=== PATIENT | male | born 1940 | race Caucasian/White ===

== ENCOUNTER 2017-07-25 11:40 | Day surgery (SDC) | payer MEDICARE, OTHER ==
--- NOTE | 2017-07-19 23:50 | HP ---
CC: Jazmyne Sauer MD * HISTORY AND PHYSICAL: DATE OF PLANNED ADMISSION AND SURGERY: 07/25/17 HISTORY OF PRESENT ILLNESS: Mr. Sepulveda is a 76-year-old white male, who is admitted with recurrent episodes of gross hematuria, multiple bladder tumors for cystoscopy for transurethral resection of bladder tumors. 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 He was referred to me 4 years ago because of persistent microscopic hematuria and irregularity of the right bladder wall on bladder ultrasound. At that time , his urine cytology was negative. On that visit, I recommended work-up with a CT urogram and a cystoscopy to rule out any bladder lesions. The patient; however, did not want to proceed with any workup, mentioning that for the last 25 years, he has been having episodes of gross hematuria occurring after long plane rides. He did not want to proceed with the workup and he did not want to schedule a follow-up visit. I stressed to him that the findings were suspicious for bladder cancer and recommended that he proceed with the workup. The patient never called back for followup visit. He continued to be seen by Dr. Jazmyne Sauer, his wireless operator. He reported having episodes of hematuria after long rides. He has remained asymptomatic having no flank pain or voiding symptoms. Last week, he started having persistent and recurrent episodes of gross hematuria with passage of clots. He had remained asymptomatic. He was seen by Dr. Jazmyne Sauer, who referred him on an urgent basis to my office for reevaluation. The patient has had a renal ultrasound in January of 2017, showing no abnormalities. The patient was seen in my office on 07/19/17. 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 It was arising from the right lateral bladder wall. CT Urogram showed normal kidneys and ureters, no renal masses, no abnormal filling defects in the collecting systems or the ureters. There was a 3 cm mass arising from the Rt anterior bladder wall, with thickening of the bladder wall at that level. No lymphadenopathy, and no metastatic disease noted. PAST MEDICAL HISTORY AND SYSTEM REVIEW: Completely negative. He is in excellent health. His only medication is vitamin B12. He denies any cardiac or pulmonary diseases or symptoms. He denies any voiding symptoms besides the gross hematuria. He is a nonsmoker. He has very good exercise tolerance. He is admitted for transurethral resection of the above tumors. PHYSICAL EXAMINATION GENERAL: A pleasant healthy and fit looking white male, who looks good for his age. VITAL SIGNS: Blood pressure 130/80, pulse of 76. LUNGS: Clear. HEART: Regular and rhythmic. No murmurs. ABDOMEN: Soft, no masses, no tenderness, and no CVA tenderness. EXTERNAL GENITALIA: He is circumcised. No penile lesions. Normal testes and no hernias. RECTAL EXAM: Shows a nonenlarged and nonsuspicious prostate. EXTREMITIES: Show no edema. IMPRESSION: Recurrent episodes of gross hematuria with multiple bladder tumors with the bulk originating from the right lateral wall. PLAN: Transurethral resection of the bladder tumors. I discussed the above plans in detail with the patient. I also discussed that he will need additional treatments depending upon the grade and the stage of his tumors. I also discussed the possible need for restaging TUR depending on the pathology. Because of concern regarding developing an obturator reflex during the resection of the tumors, his procedure will be done under general anesthesia with muscle relaxant to avoid an obturator reflex during the resections. This will be discussed with the anesthesiologist pre op. All the patient's questions were answered. [id number]/[facility] #: [id number] SANAZ
[~2017-07-25 11:40] MED LIST: Buffered Lidocaine 0.9% SYRIN* 5 ML/SYR SYRINGE INTRADERM ONE; Sodium Citrate/Citric Acid* 15 ML UDC PO ONE
[2017-07-25] MEDS ORDERED: cefTRIAXone(*) 2 GM ADDV.VIAL IVPB ONE (12:11)
[2017-07-25] MEDS ORDERED: Sodium Citrate/Citric Acid* 15 ML UDC ONE (12:11)
[2017-07-25 13:13] LABS: Comments Flag Yes
[2017-07-25 13:36] LABS: Mean Platelet Volume 9 um3 (7.4-10.4)
[2017-07-25] MEDS ORDERED: Lidocaine 2% PF * 5 ML VIAL ONE (13:53)
[2017-07-25] MEDS ORDERED: Propofol* 10 MG/ML 20 ML BTL IV PUSH ONE (13:53)
[2017-07-25] MEDS ORDERED: Rocuronium* 10 MG/ML VIAL ONE (13:56)
[2017-07-25] MEDS ORDERED: fentaNYL* 50 MCG/ML 2 ML VIAL (100 MCG VIAL) ONE ×2 (14:11→16:12)
[2017-07-25] MEDS ORDERED: Glycopyrrolate IV* 0.2 MG/ML 1 ML VIAL ONE (14:51)
[2017-07-25] MEDS ORDERED: Neostigmine Methylsulfate* 2 MG/2 ML SYRINGE ONE (14:51)
[2017-07-25] MEDS ORDERED: Ketorolac INJ* 30 MG/ML 1 ML VIAL IV PRN (15:34)
[2017-07-25] MEDS ORDERED: fentaNYL* 50 MCG/ML 2 ML VIAL (100 MCG VIAL) IV PRN (15:34)
[2017-07-25] MEDS ORDERED: Ondansetron INJ* 2 MG/ML VIAL IV PRN (15:34)
[2017-07-25] MEDS ORDERED: mitoMYcin PWD* 40 MG in Sterile Water for Inj* 40 ML IRRIGATION ONE (17:00)
[2017-07-25 18:05] VITALS: BP 139/119
--- NOTE | 2017-07-26 02:10 | OP ---
CC: Dr. Jazmyne Sauer OPERATIVE REPORT: DATE OF OPERATION: 07/25/17 DATE OF : 36 SURGEON: Panfilo Sousa MD ANESTHESIOLOGIST: Prasanna Pelaez DO ANESTHESIA: General. PRE-OP DIAGNOSIS: Multiple bladder tumors. POST-OP DIAGNOSIS: Multiple bladder tumors. OPERATIVE PROCEDURE: 1. Cystoscopy. 2. Transurethral resection of multiple bladder tumors (5 cm). INDICATIONS: Mr. Sepulveda is a 76-year-old white male, who had a long history of recurrent episodes of gross painless hematuria. Recently, the episodes became more frequent associated with clots. Office cystoscopy showed multiple bladder tumors with the largest tumor occupying the right anterior bladder wall. There were smaller tumors noted. CT urogram showed normal upper tracts and normal ureters. There was significant degree of thickening and mass in the right anterior bladder wall consistent with the findings on the cystoscopy. There was no lymphadenopathy or metastatic disease. Because of the above history and findings, the patient is admitted for TURBT. PATHOLOGY AT CYSTOSCOPY: The penile and bulbar urethrae looked normal. The prostatic urethra measured 2.5 cm in length and there was only mild obstruction by the prostate. Examination of the bladder showed normal ureteral orifices. There were 2 small tumors measuring about 1 cm in size located in the base of the bladder and in the left base of the bladder superior and lateral to the left ureteral orifice. The bulk of the tumor was located in the right anterolateral bladder wall. The tumor looked high grade and seemed to be invasive into the bladder wall. There was adjacent flat irregularity of the mucosa consistent with either lymphatic obstruction, or suspicious for carcinoma in situ. DESCRIPTION OF PROCEDURE: After successful general endotracheal anesthesia, the patient was placed in the lithotomy position and prepped and draped in the usual manner. Cystoscopy was performed. The bladder was carefully inspected and the above findings were noted. The resectoscope was then introduced inside the bladder. Water was used for irrigation. The inflow and outflow were adjusted to avoid overdistention of the bladder. The patient was given muscle relaxant by the anesthesiologist to avoid an obturator reflex. The large tumor in the right anterolateral bladder wall was then resected deep to muscle. The resected tissue was irrigated and sent for pathology and labelled as bladder tumor, right anterolateral bladder wall. The irregular tissue adjacent to the bladder tumor was resected and sent as a separate specimen and labeled as right anterior bladder wall. The tumor in the left base of the bladder lateral to the left ureteral orifice was also resected down to muscle and sent as a separate specimen labeled tumor base of bladder. The other superficial tumors that were seen were thoroughly fulgurated with the coagulation current. Extensive fulguration was then carried controlling all oozing from the bed of the resected tumors. At the completion of the resection, there was no gross residual tumor seen. There was good hemostasis. There was no evidence of any bladder perforation. The ureteral orifices looked normal. No residual tumor fragments were noted floating in the bladder. The resectoscope was then removed and a size 20-Wallisian Foss catheter was passed inside the bladder and the balloon inflated with 15 cc of water. Irrigation yielded clear returns. The patient tolerated the procedure well and left the operating room in good condition. The plan is to give the patient 1 dose of intravesical mitomycin-C in the recovery room. [id number]/[facility] #: [id number] MTDD
== END 2017-07-25 18:05 | disposition home or self-care (01) ==
LOC: OR 11:40
PROVIDERS: ATTEND Urology
DX: C67.8 Malignant neoplasm of overlapping sites of bladder (principal); R31.0 Gross hematuria; Z87.891 Personal history of nicotine dependence
CPT/HCPCS: 36415; 85049; 85610; 85730; 88305; A9270-GY; J0696; J2704; J3010; J9280

== ENCOUNTER 2017-10-25 16:31 | Emergency (ER) | payer MEDICARE, OTHER ==
[2017-10-25] MEDS ORDERED: Ketorolac INJ* 30 MG/ML 1 ML VIAL IV ONE (18:25)
[2017-10-25 19:00] LABS: ABS Basophils 0 10^3/ul (0-0.2); ABS Eosinophils 0 10^3/ul (0-0.6); ABS Lymphocytes 0.6 10^3/ul (1.0-4.8); ABS Monocytes 0.7 10^3/ul (0-0.8); ABS Neutrophils 8.8 10^3/ul (1.5-7.7); ABS Nucleated RBC 0 10^3/ul; Eosinophil % 0 % (0-6); Hematocrit 28 % (42-52); Hemoglobin 9.1 g/dl (14.0-18.0); Lymphocyte % 5.7 % (25-47); Mean Corpuscular HGB Conc 33 g/dl (31-36); Mean Corpuscular Hemoglobin 25 pg (27-31); Mean Corpuscular Volume 75 fL (80-94); Mean Platelet Volume 8 um3 (7.4-10.4); Nucleated Red Blood Cells % 0; Platelet Count 168 10^3/ul (150-450); Red Blood Count 3.67 10^6/ul (4.0-5.4); Red Cell Distribution Width 15 % (10.5-15); White Blood Count 10.2 10^3/ul (3.5-10.8)
[2017-10-25 19:16] LABS: EGFR Non-African American 69.7 (>60)
[2017-10-25] MEDS ORDERED: Iohexol 300* (CONTRAST) 10 ML SDV IV ONE (21:30)
--- NOTE | 2017-10-25 21:59 | RAD ---
INDICATION: Left lower quadrant pain COMPARISON: Chest abdomen and pelvis September 13, 2017 TECHNIQUE: Axial source images were obtained from the hemidiaphragms to the symphysis pubis following administration of oral and intravenous contrast. 95 mL Omnipaque 300 was utilized. Coronal and sagittal reconstructed images were acquired. Lung bases: There is minimal lingular atelectasis or scarring. The lung bases are otherwise clear. Liver: The liver is normal in size. There are no masses. There is no ductal dilatation. Gallbladder: There is calcified cholelithiasis with a 2 cm gallstone. This represents a previously documented finding. Spleen: There is moderate splenomegaly without focal mass. Pancreas: There is no focal pancreatic mass or ductal dilatation. Adrenal glands: There is no evidence of adrenal mass. Kidneys: The kidneys are normal in size and position. There are prompt nephrograms and there is prompt excretion bilaterally. There are bilateral renal cysts with dominant 7 cm right renal cyst there is no evidence of nephrolithiasis. Adenopathy: There is no evidence of adenopathy by size criteria. Fluid collections: There are multiple localized fluid collections. One large fluid collection is in the central lower pelvis at the site of bladder resection and appears contiguous with the additional loculated collections extending into both iliac fossae. There is no air within the collections. Vessels:There are atherosclerotic changes involving the aorta and iliac vessels with extensive intimal calcifications and vascular ectasia there is no focal aneurysm. The IVC appears normal. GI tract: There are no acute upper GI findings findings. There is now a stoma in the right lower quadrant perhaps related to ileal loop procedure. Suggest correlation with surgical history. There are extensive diverticula of the sigmoid colon but no convincing CT evidence of acute diverticulitis. Pelvic organs: The prostate is not well delineated and may been resected at the time of cystectomy Bladder: There is interval cystectomy by history. Abdominal and pelvic soft tissues: There is interval laparotomy.. Osseous structures: There are no acute osseous findings. There is spondylitic change of the lumbar spine Other: None IMPRESSION: Cholelithiasis Bilateral renal cysts with dominant 7.2 cm right renal cyst. Cystectomy with presumed ileal loop procedure. Multiple localized fluid collections within the abdomen. These may or may not be infected. Moderate diverticula of the sigmoid colon
[2017-10-25] MEDS ORDERED: NS 0.9% 1000 ML* 1,000 ML IV ONE (22:19)
[2017-10-25] MEDS ORDERED: cefTRIAXone(*) 1 GM in NS 0.9% 50 ML* 50 ML IVPB ONE (22:19)
[2017-10-25 22:31] LABS: Urine Appearance Cloudy; Urine Blood Negative (Negative); Urine Color Amber; Urine Ketones Negative (Negative); Urine Protein 3+(>=500 mg/dL) (Negative); Urine Specific Gravity 1.023 (1.010-1.030); Urine Urobilinogen Negative (Negative)
--- NOTE | 2017-10-25 23:07 | ED ---
Edy Hatr Stephanie, scribed for Phil Apple MD on 10/25/17 at 1822 . Abdominal Pain/Male - HPI Summary HPI Summary: The pt is a 77 y/o M presenting to the ED with c/o lower abd pain that began on 10/23 at 14:00. Symptoms include fever. The pt denies nausea, nasal congestion, cough and decreased appetite. The pt states he felt fine until he went on a walk 2 days ago. The pt had his bladder removed on 09/19. The pain is rated as a 5 in severity. - History of Current Complaint Chief Complaint: EDFever Stated Complaint: ABD PAIN Time Seen by Provider: 10/25/17 17:55 Hx Obtained From: Patient Onset/Duration: Gradual Onset, Lasting Days - 2, Still Present Timing: Constant Severity Currently: Moderate Pain Intensity: 5 Pain Scale Used: 0-10 Numeric Location: Suprapubic Radiates: No Aggravating Factor(s): Nothing Alleviating Factor(s): Nothing Associated Signs And Symptoms: Positive: Fever. Negative: Cough, Nausea, Other - nasal congestion, decreased appetite - Allergies/Home Medications Allergies/Adverse Reactions: Allergies Allergy/AdvReac Type Severity Reaction Status Date / Time tetracycline Allergy Unknown Verified 10/25/17 17:46 Reaction Details PMH/Surg Hx/FS Hx/Imm Hx Endocrine/Hematology History: Denies: Hx Diabetes Cardiovascular History: Denies: Hx Hypertension, Other Cardiovascular Problems/Disorders Respiratory History: Denies: Other Respiratory Problems/Disorders GI History: Denies: Other GI Disorders History: Denies: Hx Renal Disease Sensory History: Reports: Hx Contacts or Glasses - glasses Denies: Hx Hearing Aid Opthamlomology History: Reports: Hx Contacts or Glasses - glasses - Surgical History Surgery Procedure, Year, and Place: 1953, gland from neck Hx Anesthesia Reactions: No Infectious Disease History: No Infectious Disease History: Denies: Traveled Outside the [place] in Last 30 Days - Family History Known Family History: Positive: Unknown - The pt denies all family hx. - Social History Occupation: Retired Lives: With Family Alcohol Use: Weekly Alcohol Amount: 3-4 drinks a week Substance Use Type: Reports: None Smoking Status (MU): Former Smoker Amount Used/How Often: pack a day for 20 yrs Review of Systems Positive: Fever, Other - Negative: decreased appetite Positive: Other - Negative: nasal congestion Negative: Cough Positive: Abdominal Pain. Negative: Nausea All Other Systems Reviewed And Are Negative: Yes Physical Exam - Summary Physical Exam Summary: Appearance: The patient is well-nourished in no acute distress and in no acute pain. Skin: The skin is warm and dry and skin color reflects adequate perfusion. HEENT: The head is normocephalic and atraumatic. The pupils are equal and reactive. The conjunctivae are clear and without drainage. Nares are patent and without drainage. Mouth reveals moist mucous membranes and the throat is without erythema and exudate. The external ears are intact. The ear canals are patent and without drainage. The tympanic membranes are intact. Neck: the neck is supple with full range of motion and non-tender. There are no carotid bruits. There is no neck vein distension. Respiratory: Chest is non-tender. Lungs are clear to auscultation and breath sounds are symmetrical and equal. Cardiovascular: Heart is regular rate and rhythm. There is no murmur or rub auscultated. There is no peripheral edema and pulses are symmetrical and equal. Abdomen: Tender over LLQ, post-operative wounds are clean and healing well. There are normal bowel sounds heard in all four quadrants and there is no organomegaly palpated. Musculoskeletal: There is no back tenderness noted. Extremities are non-tender with full range of motion. There is good capillary refill. There is no peripheral edema or calf tenderness elicited. Neurological: Patient is alert and oriented to person, place and time. The patient has symmetrical motor strength in all four extremities. Cranial nerves are grossly intact. Deep tendon reflexes are symmetrical and equal in all four extremities. Psychiatric: The patient has an appropriate affect and does not exhibit any anxiety or depression Triage Information Reviewed: Yes Vital Signs On Initial Exam: Initial Vitals Temp Pulse Resp BP Pulse Ox 100.8 F 106 19 113/50 100 10/25/17 16:43 10/25/17 16:43 10/25/17 16:43 10/25/17 16:43 10/25/17 16:43 Vital Signs Reviewed: Yes Diagnostics - Vital Signs Vital Signs Temp Pulse Resp BP Pulse Ox 10/25/17 17:45 101.8 F 110 24 121/52 99 10/25/17 16:43 100.8 F 106 19 113/50 100 - Laboratory Lab Results: Lab Results 0210/25/17 10/25/17 Range/Units 18:36 18:36 18:36 WBC 10.2 (3.5-10.8) 10^3/ul RBC 3.67 L (4.0-5.4) 10^6/ul Hgb 9.1 L (14.0-18.0) g/dl Hct 28 L (42-52) % MCV 75 L (80-94) fL MCH 25 L (27-31) pg MCHC 33 (31-36) g/dl RDW 15 (10.5-15) % Plt Count 168 (150-450) 10^3/ul MPV 8 (7.4-10.4) um3 Neut % (Auto) 86.8 H (38-83) % Lymph % (Auto) 5.7 L (25-47) % Greene % (Auto) 7.3 H (0-7) % Eos % (Auto) 0 (0-6) % Baso % (Auto) 0.2 (0-2) % Absolute Neuts (auto) 8.8 H (1.5-7.7) 10^3/ul Absolute Lymphs (auto) 0.6 L (1.0-4.8) 10^3/ul Absolute Monos (auto) 0.7 (0-0.8) 10^3/ul Absolute Eos (auto) 0 (0-0.6) 10^3/ul Absolute Basos (auto) 0 (0-0.2) 10^3/ul Absolute Nucleated RBC 0 10^3/ul Nucleated RBC % 0 Sodium 131 L (133-145) mmol/L Potassium 4.0 (3.5-5.0) mmol/L Chloride 101 (101-111) mmol/L Carbon Dioxide 22 (22-32) mmol/L Anion Gap 8 (2-11) mmol/L BUN 22 (6-24) mg/dL Creatinine 1.03 (0.67-1.17) mg/dL Est GFR ( Amer) 89.6 (>60) Est GFR (Non-Af Amer) 69.7 (>60) BUN/Creatinine Ratio 21.4 H (8-20) Glucose 113 H (70-100) mg/dL Lactic Acid 1.2 (0.5-2.0) mmol/L Calcium 8.7 (8.6-10.3) mg/dL Total Bilirubin 0.50 (0.2-1.0) mg/dL AST 7 L (13-39) U/L ALT 6 L (7-52) U/L Alkaline Phosphatase 66 (34-104) U/L C-Reactive Protein 221.67 H (< 5.00) mg/L Total Protein 6.2 L (6.4-8.9) g/dL Albumin 3.2 (3.2-5.2) g/dL Globulin 3.0 (2-4) g/dL Albumin/Globulin Ratio 1.1 (1-3) Lipase 11 (11.0-82.0) U/L Urine Color Urine Appearance Urine pH (5-9) Ur Specific [place] (1.010-1.030) Urine Protein (Negative) Urine Ketones (Negative) Urine Blood (Negative) Urine Nitrate (Negative) Urine Bilirubin (Negative) Urine Urobilinogen (Negative) Ur Leukocyte Esterase (Negative) Urine WBC (Auto) (Absent) Urine RBC (Auto) (Absent) Ur Squamous Epith Cells (Absent) Triple Phos Crystals (Absent) Amorphous Crystals (Absent) Urine Bacteria (Absent) Hyaline Casts (Absent) Urine Glucose (Negative) 10/25/17 Range/Units 22:05 WBC (3.5-10.8) 10^3/ul RBC (4.0-5.4) 10^6/ul Hgb (14.0-18.0) g/dl Hct (42-52) % MCV (80-94) fL MCH (27-31) pg MCHC (31-36) g/dl RDW (10.5-15) % Plt Count (150-450) 10^3/ul MPV (7.4-10.4) um3 Neut % (Auto) (38-83) % Lymph % (Auto) (25-47) % Greene % (Auto) (0-7) % Eos % (Auto) (0-6) % Baso % (Auto) (0-2) % Absolute Neuts (auto) (1.5-7.7) 10^3/ul Absolute Lymphs (auto) (1.0-4.8) 10^3/ul Absolute Monos (auto) (0-0.8) 10^3/ul Absolute Eos (auto) (0-0.6) 10^3/ul Absolute Basos (auto) (0-0.2) 10^3/ul Absolute Nucleated RBC 10^3/ul Nucleated RBC % Sodium (133-145) mmol/L Potassium (3.5-5.0) mmol/L Chloride (101-111) mmol/L Carbon Dioxide (22-32) mmol/L Anion Gap (2-11) mmol/L BUN (6-24) mg/dL Creatinine (0.67-1.17) mg/dL Est GFR ( Amer) (>60) Est GFR (Non-Af Amer) (>60) BUN/Creatinine Ratio (8-20) Glucose (70-100) mg/dL Lactic Acid (0.5-2.0) mmol/L Calcium (8.6-10.3) mg/dL Total Bilirubin (0.2-1.0) mg/dL AST (13-39) U/L ALT (7-52) U/L Alkaline Phosphatase (34-104) U/L C-Reactive Protein (< 5.00) mg/L Total Protein (6.4-8.9) g/dL Albumin (3.2-5.2) g/dL Globulin (2-4) g/dL Albumin/Globulin Ratio (1-3) Lipase (11.0-82.0) U/L Urine Color Emily Urine Appearance Cloudy Urine pH 9.0 (5-9) Ur Specific [place] 1.023 (1.010-1.030) Urine Protein 3+(>=500 mg/dl) H (Negative) Urine Ketones Negative (Negative) Urine Blood Negative (Negative) Urine Nitrate Negative (Negative) Urine Bilirubin 1+ (Negative) Urine Urobilinogen Negative (Negative) Ur Leukocyte Esterase 2+ H (Negative) Urine WBC (Auto) 3+(>20/hpf) H (Absent) Urine RBC (Auto) Trace(0-2/hpf) (Absent) Ur Squamous Epith Cells Present H (Absent) Triple Phos Crystals Present H (Absent) Amorphous Crystals Present H (Absent) Urine Bacteria Absent (Absent) Hyaline Casts Present H (Absent) Urine Glucose Negative (Negative) Result Diagrams: 10/25/17 18:36 10/25/17 18:36 Lab Statement: Any lab studies that have been ordered have been reviewed, and results considered in the medical decision making process. - CT Abdomen/Pelvis CT Interpretation: Positive (See Comments) CT Interpretation Completed By: Radiologist - Cholelithiasis Bilateral renal cysts with dominant 7.2 cm right renal cyst. Cystectomy with presumed ileal loop procedure. Multiple localized fluid collections within the abdomen. These may or may not be infected. Moderate diverticula of the sigmoid colon Abdominal Pain Fem Course/Dx - Course Course Of Treatment: Mr. Sepulveda had a cystectomy about 6 weeks ago and two days ago developed low abdominal pain and fevers. He was febrile on arrival and a little tachycardic. His WBC's were 10 with a slight shift (ANC 8.8). His CRP was markedly elevated at 200. CT of his abdomen with contrast has been read as having loculated fluid collections. I spole with the urological resident at [facility] and he requested that we send him the images. We are now waiting for him to call back. We have no urologic coverage tonight. The patient is receiving fluids and antibiotics. - Diagnoses Provider Diagnoses: Postoperative intra-abdominal abscess Discharge - Discharge Plan Condition: Stable Disposition: OTHER Discharge Disposition Comment: This pt was a sign out to Dr. Monreal at shift change. Referrals: Jazmyne Sauer MD [Primary Care Provider] - The documentation as recorded by the Edy ibarra Stephanie accurately reflects the service I personally performed and the decisions made by me, Phil Apple MD.
[2017-10-25] MEDS ORDERED: NS 0.9% 50 ML* 100 ML ONE (23:09)
[2017-10-25] MEDS ORDERED: cefTRIAXone(*) 1 GM in NS 0.9% 50 ML* 50 ML IVPB STA (23:15)
[2017-10-25] MEDS ORDERED: cefTRIAXone(*) 1 GM ADVAN/BAG ONE (23:16)
[2017-10-26 00:56] LABS: INR 1.46 (0.77-1.02)
[2017-10-26 02:00] VITALS: BP 107/53
--- NOTE | 2017-10-26 02:14 | ED ---
Orville Hart Angela, scribed for Anirudh Monreal on 10/26/17 at 0112 . Progress - Progress Note Progress Note: This pt was signed out by Dr. Apple, pending transfer to [facility]. [00:03]: I spoke with the transfer center at [facility] who reported they would call back. [01:03]: I spoke with Dr. Wyman, from [facility], who has accepted the pt for transfer. Pt will be transferred to [facility], in stable condition. Condition: Stable Disposition: Transfer to [facility] Course/Dx - Diagnoses Provider Diagnoses: Postoperative intra-abdominal abscess The documentation as recorded by the Orville ibarra Angela accurately reflects the service I personally performed and the decisions made by Rah lo Emmanuel.
--- NOTE | 2017-10-29 08:49 | ED ---
Progress - Progress Note Progress Note: This pt was signed out by Dr. Apple, pending transfer to [facility]. [00:03]: I spoke with the transfer center at [facility] who reported they would call back. [01:03]: I spoke with Dr. Wyman, from [facility], who has accepted the pt for transfer. Pt will be transferred to [facility], in stable condition. 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 Transferred to [facility]. Will fax. rajni Hernandez aware. ALA, PA-C 8:48am 10/29 Course/Dx - Course Course Of Treatment: Mr. Sepulveda had a cystectomy about 6 weeks ago and two days ago developed low abdominal pain and fevers. He was febrile on arrival and a little tachycardic. His WBC's were 10 with a slight shift (ANC 8.8). His CRP was markedly elevated at 200. CT of his abdomen with contrast has been read as having loculated fluid collections. I spole with the urological resident at [facility] and he requested that we send him the images. We are now waiting for him to call back. We have no urologic coverage tonight. The patient is receiving fluids and antibiotics. - Diagnoses Provider Diagnoses: Postoperative intra-abdominal abscess
== END 2017-10-26 01:55 | disposition short-term general hospital (02) ==
LOC: ED 16:31
DX: T81.4XXA Infection following a procedure, initial encounter (principal); K65.1 Peritoneal abscess; R50.9 Fever, unspecified; R10.30 Lower abdominal pain, unspecified; Z87.891 Personal history of nicotine dependence
CPT/HCPCS: 36415; 74177; 80053; 81003; 81015; 83605; 83690; 85025; 85610; 85730; 86140; 87040; 87077; 87086; 87205; 96374; 96375; 99285; J0696; J1885; Q9967

== ENCOUNTER 2017-12-29 18:42 | Emergency (ER) | payer MEDICARE, OTHER ==
[2017-12-29 18:56] VITALS: BP 130/80
[2017-12-29] MEDS ORDERED: NS 0.9% 1000 ML* 1,000 ML IV ONE (18:56)
--- NOTE | 2017-12-29 19:39 | RAD ---
INDICATION: Fell and hit posterior head. Confusion. Altered mental status. Comparison: No relevant prior exams available on the [facility] PACS for comparison. Technique: Noncontrast CT vertex of skull through foramen magnum. Coronal reformation. Report: Motion artifact degrades image quality. Scan repeated to correct for significant artifact from motion on the initial data acquisition. Small volume of subarachnoid hemorrhage at the LEFT temporal lobe. No definitive subdural or epidural hematoma evident. Negative for mass effect. Punctate focus of pneumocephalus at the LEFT middle cranial fossa reference axial image 12 of 36. Moderate prominence of the cerebral sulci reflecting atrophy. Mild prominence of the cerebellar fissures reflecting atrophy. 0.7 cm chronic lacunar infarct at the LEFT caudate head. Negative for fischer matter white matter obscuration. Unremarkable ventricles accounting for atrophy and basal cisterns. Reference the coronal reformatted series there is a nondisplaced axially oriented LEFT temporoparietal fracture. Small mucous retention cyst or polyp at the RIGHT maxillary sinus. Negative for paranasal sinus fluid levels. Clear partially visualized mastoid air spaces. Minimal LEFT parietal scalp edema and subcutaneous emphysema; correlate for laceration. IMPRESSION: 1. Small volume of subarachnoid hemorrhage at the LEFT temporal lobe. No definitive subdural or epidural hematoma evident. Minimal punctate focus of pneumocephalus. Reference the coronal reformatted series there is a nondisplaced axially oriented LEFT temporoparietal fracture. 2. Negative for mass effect. 3. Minimal LEFT parietal scalp edema and subcutaneous emphysema; correlate for laceration. 4. 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 Results discussed with Dr. Monreal 12/29/2017 7:35 PM EDT
[2017-12-29 19:40] LABS: Hematocrit 29 % (42-52); Hemoglobin 9.2 g/dl (14.0-18.0); Mean Corpuscular HGB Conc 31 g/dl (31-36); Mean Corpuscular Hemoglobin 22 pg (27-31); Mean Corpuscular Volume 69 fL (80-94); Mean Platelet Volume 7.7 um3 (7.4-10.4); Platelet Count 237 10^3/ul (150-450); Red Blood Count 4.26 10^6/ul (4.0-5.4); Red Cell Distribution Width 18 % (10.5-15); White Blood Count 8.5 10^3/ul (3.5-10.8)
[2017-12-29 19:44] LABS: INR 1.02 (0.77-1.02)
--- NOTE | 2017-12-29 19:45 | RAD ---
INDICATION: Neck pain post fall. Head injury with LEFT temporal lobe subarachnoid hemorrhage. COMPARISON: October 05, 2016 radiographs. TECHNIQUE: Multidetector CT images foramen magnum to lung apices without contrast. Multiplanar reformation. REPORT: Normal vertebral alignment accounting for exam positioning without spondylolisthesis or subluxation at any level. Negative for cervical vertebral body or posterior element fracture. Negative for paravertebral hematoma. Diffuse advanced degenerative spondylosis and facet joint osteoarthritis. Ankylosis at the C3-C4 vertebral bodies and facet joints. At C3-C4 dorsal spondylitic ridging results in minimal impression on the thecal sac. Uncinate process spurring and facet joint osteoarthritis results in slight bilateral foraminal stenosis. At C4-C5 dorsal disc osteophyte complex results in mild impression on the ventral margin of the thecal sac. Uncinate process spurring and facet joint osteoarthritis results in moderately severe bilateral foraminal stenosis. At C5-C6 dorsal disc osteophyte complex results in mild to moderate impression on the ventral margin of the thecal sac. Uncinate process spurring and facet joint osteoarthritis results in moderately severe bilateral foraminal stenosis. At C6-C7 dorsal disc osteophyte complex results in mild impression on the ventral margin of the thecal sac. Uncinate process spurring and facet joint osteoarthritis results in moderately severe foraminal stenosis. IMPRESSION: 1. No CT evidence for traumatic cervical spine injury. 2. 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 No significant change in magnitude of degenerative disease compared with the October 2016 radiographs.
[2017-12-29 19:48] LABS: EGFR Non-African American 78.4 (>60)
[2017-12-29] MEDS ORDERED: Iohexol 300* (CONTRAST) 10 ML SDV IV ONE (19:51)
--- NOTE | 2017-12-29 20:11 | ED ---
Mat Hatr Elizabeth, scribed for Anirudh Monreal on 12/29/17 at 1929 . Head Injury - HPI Summary HPI Summary: This patient is a 77 year old M presenting to [facility] following a fall today that caused him to hit the back of his head and his back. The patient rates the pain 8/10 in severity. Symptoms aggravated by nothing. Symptoms alleviated by nothing. Patients son reports that the patient has been confused since the trauma and vomited several times. - History Of Current Complaint Chief Complaint: EDTraumaMultiple Stated Complaint: FALL/VOMITING/CONFUSION Time Seen by Provider: 12/29/17 18:55 Hx Obtained From: Family/[employer]visor - Patient's son Hx From Patient Unobtainable Due To: Altered Mental Status Mechanism Of Injury: Fall From A Standing Position Onset/Duration: Started Hours Ago, Traumatic, Still Present Onset of Pain: Post Accident Severity Currently: Moderate Severity Initially: Moderate Pain Intensity: 8 Pain Scale Used: 0-10 Numeric Associated Signs And Symptoms: Confusion, Neck Pain, Vomiting - Allergies/Home Medications Allergies/Adverse Reactions: Allergies Allergy/AdvReac Type Severity Reaction Status Date / Time tetracycline Allergy Unknown Verified 10/25/17 17:46 Reaction Details PMH/Surg Hx/FS Hx/Imm Hx Endocrine/Hematology History: Denies: Hx Diabetes Cardiovascular History: Denies: Hx Hypertension, Other Cardiovascular Problems/Disorders Respiratory History: Denies: Other Respiratory Problems/Disorders GI History: Denies: Other GI Disorders History: Reports: Other Problems/Disorders - Bladder cancer Denies: Hx Renal Disease Sensory History: Reports: Hx Contacts or Glasses - glasses Denies: Hx Hearing Aid Opthamlomology History: Reports: Hx Contacts or Glasses - glasses - Cancer History Cancer Type, Location and Year: BLADDER CANCER - Surgical History Surgery Procedure, Year, and Place: 1953, gland from neck. 09/20/2017, cholecystectomy Hx Anesthesia Reactions: No Infectious Disease History: No Infectious Disease History: Denies: Traveled Outside the [place] in Last 30 Days - Family History Known Family History: Positive: Unknown - The pt denies all family hx. - Social History Alcohol Use: Weekly Alcohol Amount: 3-4 drinks a week Substance Use Type: Reports: None Smoking Status (MU): Former Smoker Amount Used/How Often: pack a day for 20 yrs Review of Systems Negative: Epistaxis Positive: Vomiting Positive: Other - positive neck pain, positive back pain Neurological: Other - Confusion All Other Systems Reviewed And Are Negative: Yes Physical Exam - Summary Physical Exam Summary: Appearance: Well appearing, no pain distress Skin: warm, dry, reflects adequate perfusion Head/face: normal Eyes: EOMI, BRI ENT: normal Neck: supple, tender Respiratory: CTA, breath sounds present Cardiovascular: RRR, pulses symmetrical ~ Abdomen: non-tender, soft, urostomy bag in RLQ Bowel: present Musculoskeletal: normal, strength/ROM intact Neuro: normal, sensory motor intact, alert and confused Triage Information Reviewed: Yes Vital Signs On Initial Exam: Initial Vitals Temp Pulse Resp BP Pulse Ox 96.7 F 92 29 130/80 100 12/29/17 18:53 12/29/17 18:53 12/29/17 18:53 12/29/17 18:53 12/29/17 18:53 Vital Signs Reviewed: Yes Diagnostics - Vital Signs Vital Signs Temp Pulse Resp BP Pulse Ox 12/29/17 18:53 96.7 F 92 29 130/80 100 - Laboratory Lab Results: Lab Results 12/29/17 12/29/17 12/29/17 Range/Units 19:20 19:20 19:20 WBC 8.5 (3.5-10.8) 10^3/ul RBC 4.26 (4.0-5.4) 10^6/ul Hgb 9.2 L (14.0-18.0) g/dl Hct 29 L (42-52) % MCV 69 L (80-94) fL MCH 22 L (27-31) pg MCHC 31 (31-36) g/dl RDW 18 H (10.5-15) % Plt Count 237 (150-450) 10^3/ul MPV 7.7 (7.4-10.4) um3 Neut % (Auto) Pending Lymph % (Auto) Pending Banks % (Auto) Pending Eos % (Auto) Pending Baso % (Auto) Pending Absolute Neuts (auto) Pending Absolute Lymphs (auto) Pending Absolute Monos (auto) Pending Absolute Eos (auto) Pending Absolute Basos (auto) Pending Absolute Nucleated RBC Pending Nucleated RBC % Pending INR (Anticoag Therapy) 1.02 (0.77-1.02) Sodium 135 L (139-145) mmol/L Potassium 3.6 (3.5-5.0) mmol/L Chloride 107 (101-111) mmol/L Carbon Dioxide 19 L (22-32) mmol/L Anion Gap 9 (2-11) mmol/L BUN 19 (6-24) mg/dL Creatinine 0.93 (0.67-1.17) mg/dL Est GFR ( Amer) 100.8 (>60) Est GFR (Non-Af Amer) 78.4 (>60) BUN/Creatinine Ratio 20.4 H (8-20) Glucose 133 H (70-100) mg/dL Lactic Acid (0.5-2.0) mmol/L Calcium 9.2 (8.6-10.3) mg/dL Total Bilirubin 0.30 (0.2-1.0) mg/dL AST 11 L (13-39) U/L ALT 8 (7-52) U/L Alkaline Phosphatase 66 (34-104) U/L Total Creatine Kinase 38 (10-223) U/L Troponin I 0.00 (<0.04) ng/mL Total Protein 6.7 (6.4-8.9) g/dL Albumin 3.7 (3.2-5.2) g/dL Globulin 3.0 (2-4) g/dL Albumin/Globulin Ratio 1.2 (1-3) Serum Alcohol Pending 12/29/17 Range/Units 19:20 WBC (3.5-10.8) 10^3/ul RBC (4.0-5.4) 10^6/ul Hgb (14.0-18.0) g/dl Hct (42-52) % MCV (80-94) fL MCH (27-31) pg MCHC (31-36) g/dl RDW (10.5-15) % Plt Count (150-450) 10^3/ul MPV (7.4-10.4) um3 Neut % (Auto) Lymph % (Auto) Banks % (Auto) Eos % (Auto) Baso % (Auto) Absolute Neuts (auto) Absolute Lymphs (auto) Absolute Monos (auto) Absolute Eos (auto) Absolute Basos (auto) Absolute Nucleated RBC Nucleated RBC % INR (Anticoag Therapy) (0.77-1.02) Sodium (139-145) mmol/L Potassium (3.5-5.0) mmol/L Chloride (101-111) mmol/L Carbon Dioxide (22-32) mmol/L Anion Gap (2-11) mmol/L BUN (6-24) mg/dL Creatinine (0.67-1.17) mg/dL Est GFR ( Amer) (>60) Est GFR (Non-Af Amer) (>60) BUN/Creatinine Ratio (8-20) Glucose (70-100) mg/dL Lactic Acid 3.0 H* (0.5-2.0) mmol/L Calcium (8.6-10.3) mg/dL Total Bilirubin (0.2-1.0) mg/dL AST (13-39) U/L ALT (7-52) U/L Alkaline Phosphatase (34-104) U/L Total Creatine Kinase (10-223) U/L Troponin I (<0.04) ng/mL Total Protein (6.4-8.9) g/dL Albumin (3.2-5.2) g/dL Globulin (2-4) g/dL Albumin/Globulin Ratio (1-3) Serum Alcohol Result Diagrams: 12/29/17 19:20 12/29/17 19:20 Lab Statement: Any lab studies that have been ordered have been reviewed, and results considered in the medical decision making process. - CT Brain CT CT Interpretation: Positive (See Comments) - IMPRESSION: 1. Small volume of subarachnoid hemorrhage at the LEFT temporal lobe. No definitive subdural or epidural hematoma evident. Minimal punctate focus of pneumocephalus. Reference the coronal reformatted series there is a nondisplaced axially oriented LEFT temporoparietal fracture. 2. Negative for mass effect. 3. Minimal LEFT parietal scalp edema and subcutaneous emphysema; correlate for laceration. 4. 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 Dr. Monreal has reviewed this report. CT Interpretation Completed By: Radiologist Cervical Spine CT CT Interpretation: Positive (See Comments) - IMPRESSION: 1. No CT evidence for traumatic cervical spine injury. 2. 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 No significant change in magnitude of degenerative disease compared with the October [address] Monreal has reviewed this report. CT Interpretation Completed By: Radiologist - EKG 18:54 Cardiac Rate: NL - at 90 BPM EKG Rhythm: Sinus Rhythm EKG Interpretation: NSR, no acute changes Re-Evaluation - Re-Evaluation first re-eval Re-Evaluation Time: 19:33 Change: Unchanged Comment: discussed radiology results with patient and family. Family expressed wish to transfer the patient to [facility]. Head Injury Course/Dx Course Of Treatment: This patient is a 77 year old M presenting to [facility] following a fall today that caused him to hit the back of his head and his back. Radiology reports reveal skull fracture with subarachnoid hemorrhage. Patients family wants him to be transferred to [facility]. We discussed patient care with Dr. Costa Frey, at [facility], and they auto-accepted to admit the patient. Patient will be transferred to [facility].The patient is agreeable with this plan. At time of transfer still pending CT chest/Abd/pelvis and CXR. - Diagnoses Differential Diagnosis/HQI/PQRI: Cerebral Contusion, Cervical Sprain, Concussion With LOC, Hematoma, Intracranial Bleed, Laceration, Skull Fracture, Other - fall Provider Diagnoses: Skull fracture, Subarachnoid hemorrhage, Head injury - Physician Notifications Discussed Care Of Patient With: Costa Frey MD - Doctor at [facility] Instructed by Provider To: Transfer - Dr. Frey auto-accepted to admit patient to [facility] - Critical Care Time Critical Care Time: 75-104 min Discharge - Sign-Out/Discharge Documenting (check all that apply): Discharge/Admit/Transfer - Discharge Plan Condition: Stable Disposition: TRANS HIGHER LVL OF CARE FAC Discharge Disposition Comment: Patient's family desired for him to be transferred to [facility]. Referrals: Jazmyne Sauer MD [Primary Care Provider] - - Billing Disposition and Condition Condition: STABLE Disposition: EMTALA The documentation as recorded by the Mat ibarra Elizabeth accurately reflects the service I personally performed and the decisions made by , Anirudh Monreal.
--- NOTE | 2017-12-29 20:17 | RAD ---
Indication: Fall with skull fracture and subarachnoid hemorrhage. Comparison: September 13, 2017 CT. Technique: Semiupright AP 20 00 hours Report: Clear lungs and pleural spaces. Negative for pneumothorax. The heart, pulmonary vasculature, and mediastinal contours are unremarkable. Unremarkable osseous structures and soft tissue contours. IMPRESSION: No radiographic evidence for traumatic thoracic injury or acute intrathoracic process.
[2017-12-29 20:37] LABS: ABS Basophils 0 10^3/ul (0-0.2); ABS Eosinophils 0.1 10^3/ul (0-0.6); ABS Lymphocytes 1.5 10^3/ul (1.0-4.8); ABS Monocytes 0.4 10^3/ul (0-0.8); ABS Neutrophils 6.6 10^3/ul (1.5-7.7); ABS Nucleated RBC 0 10^3/ul; Eosinophil % 0.8 % (0-6); Nucleated Red Blood Cells % 0.1
--- NOTE | 2017-12-29 20:52 | RAD ---
Indication: Fall with LEFT skull fracture and subarachnoid hemorrhage. COMPARISON: September 13, 2017 and December 29, 2017 CT exams. TECHNIQUE: Multidetector CT images were obtained from the lung apices to the ischial tuberosities with 100 mL Omnipaque 300 IV contrast. No oral contrast administered. CHEST REPORT: No focal pulmonary lesion, compelling alveolar consolidation, pleural effusion, pneumothorax. Negative for thoracic lymphadenopathy, cardiomegaly, pericardial effusion. Coronary artery calcifications. Small hiatal hernia. Negative for thoracic fractures or suspicious osseous lesions. Negative for soft tissue hematoma. CHEST IMPRESSION: No CT evidence for traumatic thoracic injury or acute intrathoracic pathologic process.. ABDOMEN PELVIS REPORT: No CT abnormality of the liver. 2 cm calcified gallstone in the dependent aspect of the gallbladder without additional CT abnormality of the gallbladder. Negative for biliary dilatation. Mildly atrophic pancreas without suspicious finding. Top normal 12.3 cm cephalocaudal spleen. Small hiatal hernia. No CT abnormality of the upper GI. 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 No pathologic process of the small bowel evident. Unremarkable infra cecal appendix. Severe diverticulosis of the sigmoid colon. Mild symmetric homogeneous increased density/edema in the inferior pelvic fat similar to the October 25, 2017 exam which may reflect postradiation change. Negative for ascites, free air, or hernias. Normal adrenal glands. 7 cm grossly simple cortical cyst centered at the midpole of the RIGHT kidney. Smaller LEFT renal cortical cyst. Negative for hydronephrosis. No suspicious finding of the nondilated ureters extending to the ileal conduit. 5 cm AP by 2 cm transverse by 3.8 cm cephalocaudal mildly denser than water probable fluid collection along the LEFT pelvic sidewall insinuating between the iliac vessels at the iliopsoas muscle with significant interval decrease in size compared with October 25, 2017 exam. No definitive lymphadenopathy visualized. Normal diameter abdominal aorta and borderline aneurysmal 1.5 cm diameter bilateral common and RIGHT internal iliac arteries. Physiologic distention of the IVC. Negative for soft tissue hematoma. Negative for lumbar sacral spine, pelvic, or proximal femur fracture or suspicious focal osseous lesions. Diffuse degenerative spondylosis and facet joint osteoarthritis of the lumbar sacral spine. Osteoarthritis at the RIGHT greater than LEFT hips. ABDOMEN PELVIS IMPRESSION: 1. No CT evidence for traumatic abdominal pelvic injury or fracture. 2. Cholelithiasis without additional CT abnormality of the gallbladder. 3. 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 Negative for hydronephrosis. 4. Near complete resolution of previous postsurgical loculated pelvic fluid collections with small collection persisting between the LEFT external iliac vessels and the LEFT iliopsoas muscle. 5. Mild symmetric homogeneous increased density/edema in the inferior pelvic fat similar to the October 25, 2017 exam which may reflect postradiation change. 6. Negative for lymphadenopathy.
--- NOTE | 2017-12-29 21:10 | ED ---
Mat Hart Elizabeth, scribed for MarshadeyaniraAnirudh on 12/29/17 at 4 . Progress - Progress Note Progress Note: At time of transfer, CXR and CT Chest/Abd/Pelvis was still pending. CXR: Interpreted by radiologist. IMPRESSION: No radiographic evidence for traumatic thoracic injury or acute intrathoracic process. Dr. Monreal has reviewed this report. CT Chest/Abd/Pelvis: Interpreted by radiologist. ABDOMEN PELVIS IMPRESSION: 1. No CT evidence for traumatic abdominal pelvic injury or fracture. 2. Cholelithiasis without additional CT abnormality of the gallbladder. 3. 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 Negative for hydronephrosis. 4. Near complete resolution of previous postsurgical loculated pelvic fluid collections with small collection persisting between the LEFT external iliac vessels and the LEFT iliopsoas muscle. 5. Mild symmetric homogeneous increased density/edema in the inferior pelvic fat similar to the October 25, 2017 exam which may reflect postradiation change. 6. Negative for lymphadenopathy. Dr. Monreal has reviewed this report. - EKG/XRAY/CT XRAY: chest CT: Chest/Abd/Pelvis Re-Evaluation - Re-Evaluation first re-eval Re-Evaluation Time: 19:33 Change: Unchanged Comment: discussed radiology results with patient and family. Family expressed wish to transfer the patient to [facility]. Course/Dx - Course Course Of Treatment: This patient is a 77 year old M presenting to [facility] following a fall today that caused him to hit the back of his head and his back. Radiology reports reveal skull fracture with subarachnoid hemorrhage. Patients family wants him to be transferred to [facility]. We discussed patient care with Dr. Costa Frey, at [facility], and they auto-accepted to admit the patient. Patient will be transferred to [facility].The patient is agreeable with this plan. At time of transfer still pending CT chest/Abd/pelvis and CXR. - Diagnoses Provider Diagnoses: Skull fracture, Subarachnoid hemorrhage, Head injury - Provider Notifications Instructed by Provider To: Transfer - Dr. Frey auto-accepted to admit patient to [facility] - Critical Care Time Critical Care Time: 75-104 min Discharge - Sign-Out/Discharge Documenting (check all that apply): Discharge/Admit/Transfer - Discharge Plan Condition: Stable Disposition: TRANS [facility] OF CARE FAC Referrals: Jazmyne Sauer MD [Primary Care Provider] - - Billing Disposition and Condition Condition: STABLE Disposition: EMTALA The documentation as recorded by the Mat ibarra Elizabeth accurately reflects the service I personally performed and the decisions made by , Anirudh Monreal.
== END 2017-12-29 20:23 | disposition short-term general hospital (02) ==
LOC: ED 18:42
DX: S02.91XA Unspecified fracture of skull, initial encounter for closed fracture (principal); S09.90XA Unspecified injury of head, initial encounter; I60.9 Nontraumatic subarachnoid hemorrhage, unspecified; W19.XXXA Unspecified fall, initial encounter; Y92.9 Unspecified place or not applicable; Z87.891 Personal history of nicotine dependence; R11.10 Vomiting, unspecified
CPT/HCPCS: 36415; 70450; 71045; 71260; 72125; 74177; 80053; 80320; 82550; 83605; 84484; 85025; 85060; 85610; 93005; 99284; G0480; Q9967

== ENCOUNTER → 2018-01-21 13:30 | Emergency (ER) | payer MEDICARE, OTHER ==
[2018-01-21 14:21] LABS: ABS Basophils 0 10^3/ul (0-0.2); ABS Eosinophils 0.1 10^3/ul (0-0.6); ABS Lymphocytes 0.9 10^3/ul (1.0-4.8); ABS Monocytes 0.4 10^3/ul (0-0.8); ABS Neutrophils 4.1 10^3/ul (1.5-7.7); ABS Nucleated RBC 0 10^3/ul; Eosinophil % 1.8 % (0-6); Hematocrit 28 % (42-52); Hemoglobin 8.9 g/dl (14.0-18.0); Lymphocyte % 17.2 % (25-47); Mean Corpuscular HGB Conc 32 g/dl (31-36); Mean Corpuscular Hemoglobin 22 pg (27-31); Mean Corpuscular Volume 69 fL (80-94); Mean Platelet Volume 8.2 um3 (7.4-10.4); Nucleated Red Blood Cells % 0; Platelet Count 140 10^3/ul (150-450); Red Blood Count 4.01 10^6/ul (4.0-5.4); Red Cell Distribution Width 18 % (10.5-15); White Blood Count 5.5 10^3/ul (3.5-10.8)
--- NOTE | 2018-01-21 14:21 | RAD ---
HISTORY: Chest pain COMPARISONS: December 29, 2017 VIEWS: 1: frontal portable view of the chest at 2:02 PM FINDINGS: LINES AND TUBES: None. CARDIOMEDIASTINAL SILHOUETTE: The aorta is tortuous. The cardiomediastinal silhouette is otherwise normal for portable technique. PLEURA: The costophrenic angles are sharp. No pleural abnormalities are noted. LUNG PARENCHYMA: The lungs are clear. ABDOMEN: The upper abdomen is clear. There is no subphrenic gas. BONES AND SOFT TISSUES: No bone or soft tissue abnormalities are noted. IMPRESSION: NO ACTIVE CARDIOPULMONARY DISEASE.
[2018-01-21 14:25] LABS: EGFR Non-African American 88.1 (>60)
--- NOTE | 2018-01-21 18:00 | ED ---
Christiano Hart Gabriel, scribed for Marquez Ribeiro MD on 01/21/18 at 1350 . HPI Chest Pain - HPI Summary HPI Summary: This patient is a 77 year old M BIBA to [facility] with a chief complaint of left sided CP that began at 1130 today. Pt was sitting in his computer chair checking his email. The patient rates the pain 2/10 in severity. He states on onset it was worse and describes it as a pressure. Patient denies n/v/d, dizziness, diaphoresis, and SOB. Pt has had CP history but never needed a work up, he states it usually goes away. No cardiac history. Given ASA and NTG by EMS. - History of Current Complaint Chief Complaint: EDChestWallPain Time Seen by Provider: 01/21/18 13:38 Hx Obtained From: Patient Onset/Duration: Still Present Time of Onset: 11:30 Timing: Constant Initial Severity: Moderate Current Severity: Mild Pain Intensity: 2 Pain Scale Used: 0-10 Numeric Chest Pain Location: Left Anterior Chest Pain Radiates: No Character: Pressure/Squeezing Associated Signs and Symptoms: Positive: Negative - n/v/d, dizziness, diaphoresis, and SOB - Allergy/Home Medications Allergies/Adverse Reactions: Allergies Allergy/AdvReac Type Severity Reaction Status Date / Time tetracycline Allergy Unknown Verified 10/25/17 17:46 Reaction Details Home Medications: Home Medications Cyanocobalamin TAB* [Vitamin B12 TAB*] 50 mcg PO EVERY OTHER DAY 01/21/18 [ History Confirmed 01/21/18] Iron,Carbonyl/Ascorbic Acid [Iron 100/C] 1 tab PO EVERY OTHER DAY 01/21/18 [ History Confirmed 01/21/18] PMH/Surg Hx/FS Hx/Imm Hx Endocrine/Hematology History: Denies: Hx Diabetes Cardiovascular History: Denies: Hx Hypertension, Other Cardiovascular Problems/Disorders Respiratory History: Denies: Other Respiratory Problems/Disorders GI History: Denies: Other GI Disorders History: Reports: Other Problems/Disorders - Bladder cancer Denies: Hx Renal Disease Sensory History: Reports: Hx Contacts or Glasses - glasses Denies: Hx Hearing Aid Opthamlomology History: Reports: Hx Contacts or Glasses - glasses Psychiatric History: Denies: Hx Panic Disorder - Cancer History Cancer Type, Location and Year: BLADDER CANCER - Surgical History Surgery Procedure, Year, and Place: 1953, gland from neck. 09/20/2017, cholecystectomy Hx Anesthesia Reactions: No Infectious Disease History: No Infectious Disease History: Denies: Traveled Outside the [place] in Last 30 Days - Family History Known Family History: Positive: Unknown - The pt denies all family hx. Negative: Hypertension, Diabetes, Renal Disease, Seizure Disorder, Blood Disorder - Social History Alcohol Use: Weekly Alcohol Amount: 3-4 drinks a week Substance Use Type: Reports: None Smoking Status (MU): Former Smoker Amount Used/How Often: pack a day for 20 yrs Review of Systems Negative: Skin Diaphoresis Positive: Chest Pain Negative: Shortness Of Breath Negative: Vomiting, Diarrhea, Nausea Neurological: Negative - dizziness All Other Systems Reviewed And Are Negative: Yes Physical Exam - Summary Physical Exam Summary: VITAL SIGNS: Reviewed. GENERAL: Patient is a well-developed and nourished male who is lying comfortable in the stretcher. Patient is not in any acute respiratory distress. HEAD AND FACE: No signs of trauma. No ecchymosis, hematomas or skull depressions. No sinus tenderness. EYES: PERRLA, EOMI x 2, No injected conjunctiva, no nystagmus. EARS: Hearing grossly intact. Ear canals and tympanic membranes are within normal limits. MOUTH: Oropharynx within normal limits. NECK: Supple, trachea is midline, no adenopathy, no JVD, no carotid bruit, no c- spine tenderness, neck with full ROM. CHEST: Symmetric, no tenderness at palpation LUNGS: Clear to auscultation bilaterally. No wheezing or crackles. CVS: Regular rate and rhythm, S1 and S2 present, no murmurs or gallops appreciated. ABDOMEN: Soft, non-tender. No signs of distention. No rebound no guarding, and no masses palpated. Bowel sounds are normal. EXTREMITIES: FROM in all major joints, no edema, no cyanosis or clubbing. NEURO: Alert and oriented x 3. No acute neurological deficits. Speech is normal and follows commands. SKIN: Dry and warm Triage Information Reviewed: Yes Vital Signs On Initial Exam: Initial Vitals Temp Pulse Resp BP Pulse Ox 97.6 F 73 16 107/61 100 01/21/18 13:34 01/21/18 13:34 01/21/18 13:34 01/21/18 13:34 01/21/18 13:34 Vital Signs Reviewed: Yes Diagnostics - Vital Signs Vital Signs Temp Pulse Resp BP Pulse Ox 01/21/18 13:41 75 13 107/58 100 01/21/18 13:39 81 14 98 01/21/18 13:34 97.6 F 73 16 107/61 100 - Laboratory Lab Results: Lab Results 01/21/18 01/21/18 01/21/18 Range/Units 14:01 14:01 14:01 WBC 5.5 (3.5-10.8) 10^3/ul RBC 4.01 (4.0-5.4) 10^6/ul Hgb 8.9 L (14.0-18.0) g/dl Hct 28 L (42-52) % MCV 69 L (80-94) fL MCH 22 L (27-31) pg MCHC 32 (31-36) g/dl RDW 18 H (10.5-15) % Plt Count 140 L (150-450) 10^3/ul MPV 8.2 (7.4-10.4) um3 Neut % (Auto) 73.5 (38-83) % Lymph % (Auto) 17.2 L (25-47) % [place] % (Auto) 6.9 (0-7) % Eos % (Auto) 1.8 (0-6) % Baso % (Auto) 0.6 (0-2) % Absolute Neuts (auto) 4.1 (1.5-7.7) 10^3/ul Absolute Lymphs (auto) 0.9 L (1.0-4.8) 10^3/ul Absolute Monos (auto) 0.4 (0-0.8) 10^3/ul Absolute Eos (auto) 0.1 (0-0.6) 10^3/ul Absolute Basos (auto) 0 (0-0.2) 10^3/ul Absolute Nucleated RBC 0 10^3/ul Nucleated RBC % 0 APTT 34.5 (26.0-36.3) seconds Sodium 137 L (139-145) mmol/L Potassium 4.6 (3.5-5.0) mmol/L Chloride 106 (101-111) mmol/L Carbon Dioxide 26 (22-32) mmol/L Anion Gap 5 (2-11) mmol/L BUN 14 (6-24) mg/dL Creatinine 0.84 (0.67-1.17) mg/dL Est GFR ( Amer) 113.4 (>60) Est GFR (Non-Af Amer) 88.1 (>60) BUN/Creatinine Ratio 16.7 (8-20) Glucose 98 (70-100) mg/dL Lactic Acid (0.5-2.0) mmol/L Calcium 8.9 (8.6-10.3) mg/dL Magnesium 1.9 (1.9-2.7) mg/dL Total Bilirubin 0.30 (0.2-1.0) mg/dL AST 9 L (13-39) U/L ALT 7 (7-52) U/L Alkaline Phosphatase 78 (34-104) U/L Total Creatine Kinase 27 (10-223) U/L CK-MB (CK-2) 0.6 (0.6-6.3) ng/mL Troponin I 0.00 (<0.04) ng/mL B-Natriuretic Peptide ( - 100) pg/mL Total Protein 6.0 L (6.4-8.9) g/dL Albumin 3.3 (3.2-5.2) g/dL Globulin 2.7 (2-4) g/dL Albumin/Globulin Ratio 1.2 (1-3) TSH 0.91 (0.34-5.60) mcIU/mL 01/21/18 01/21/18 01/21/18 Range/Units 14:01 14:01 16:53 WBC (3.5-10.8) 10^3/ul RBC (4.0-5.4) 10^6/ul Hgb (14.0-18.0) g/dl Hct (42-52) % MCV (80-94) fL MCH (27-31) pg MCHC (31-36) g/dl RDW (10.5-15) % Plt Count (150-450) 10^3/ul MPV (7.4-10.4) um3 Neut % (Auto) (38-83) % Lymph % (Auto) (25-47) % [place] % (Auto) (0-7) % Eos % (Auto) (0-6) % Baso % (Auto) (0-2) % Absolute Neuts (auto) (1.5-7.7) 10^3/ul Absolute Lymphs (auto) (1.0-4.8) 10^3/ul Absolute Monos (auto) (0-0.8) 10^3/ul Absolute Eos (auto) (0-0.6) 10^3/ul Absolute Basos (auto) (0-0.2) 10^3/ul Absolute Nucleated RBC 10^3/ul Nucleated RBC % APTT (26.0-36.3) seconds Sodium (139-145) mmol/L Potassium (3.5-5.0) mmol/L Chloride (101-111) mmol/L Carbon Dioxide (22-32) mmol/L Anion Gap (2-11) mmol/L BUN (6-24) mg/dL Creatinine (0.67-1.17) mg/dL Est GFR ( Amer) (>60) Est GFR (Non-Af Amer) (>60) BUN/Creatinine Ratio (8-20) Glucose (70-100) mg/dL Lactic Acid 1.0 (0.5-2.0) mmol/L Calcium (8.6-10.3) mg/dL Magnesium (1.9-2.7) mg/dL Total Bilirubin (0.2-1.0) mg/dL AST (13-39) U/L ALT (7-52) U/L Alkaline Phosphatase (34-104) U/L Total Creatine Kinase (10-223) U/L CK-MB (CK-2) (0.6-6.3) ng/mL Troponin I 0.00 (<0.04) ng/mL B-Natriuretic Peptide 13 ( - 100) pg/mL Total Protein (6.4-8.9) g/dL Albumin (3.2-5.2) g/dL Globulin (2-4) g/dL Albumin/Globulin Ratio (1-3) TSH (0.34-5.60) mcIU/mL Result Diagrams: 01/21/18 14:01 01/21/18 14:01 Lab Statement: Any lab studies that have been ordered have been reviewed, and results considered in the medical decision making process. - Radiology CXR Radiology Interpretation Completed By: Radiologist - no active cardiopulmonary disease ED physician has reviewed this radiology report. - EKG 13:56 Cardiac Rate: NL EKG Rhythm: Sinus Rhythm - at 75 BPM EKG Interpretation: No ST elevations. Chest Pain Course/Dx - Course Assessment/Plan: Patient is a 77-year-old male who presents to the emergency department with a chief complaint of chest pain. Blood work with any significant abnormality except for a chronic hypochromic and microcytic anemia. First troponin is 0.00. EKG shows no ST elevations. Second troponin is 0.00. Therefore the patient will be discharged home with follow-up with primary care physician. 35-year-old female who presents to the emergency room with a chief complaint having chest pain. Patient reports that the pain is a burning pain and is intermittent. There is nauseated symptoms. She denies any relieving or worsening triggers. Blood work is without any significant abnormality except for increased LFTs. Two Troponins 4 hours apart are 0.00. Patient was given Tylenol and the symptoms improved. Therefore I have no suspicion for acute cord syndrome or PE since the patient doesnt have any tachycardia or hypoxia. I discussed all the findings and test results with the patient. Patient was instructed to return to the emergency room immediately if any of the symptoms return or worsens. Plan of care was discussed with the patient and understands and agrees. All questions were answered at patient satisfaction. There were no further complaints or concerns. Lung exam before discharge: CTA B/L. Good air exchange. No wheezing or crackles heard. CVS: S1 and S2 present. No murmurs appreciated. Patient is alert and oriented x 3. Patient is hemodynamically stable. Patient will be discharged home with follow up PCP in the next 2-3 days - Chest Pain Differential Diagnosis/HQI/PQRI: Acute MT, ACS, Angina, CHF, Chest Wall, GI Disease, Lower Respiratory Infection - Diagnoses Provider Diagnoses: Atypical chest pain Discharge - Sign-Out/Discharge Documenting (check all that apply): Discharge/Admit/Transfer - Discharge Plan Condition: Stable Disposition: HOME Patient Education Materials: Chest Pain (ED) Referrals: Jazmyne Sauer MD [Primary Care Provider] - Additional Instructions: FOLLOW UP WITH YOUR PRIMARY CARE PHYSICIAN IN ONE WEEK. RETURN TO THE EMERGENCY DEPARTMENT FOR ANY NEW OR WORSENING SYMPTOMS. The documentation as recorded by the Christiano ibarra Gabriel accurately reflects the service I personally performed and the decisions made by , Marquez Ribeiro MD.
[2018-01-29 13:56] VITALS: BP 00/00
== END | disposition home or self-care (01) ==
LOC: ED 13:30
DX: R07.89 Other chest pain (principal); Z87.891 Personal history of nicotine dependence; C67.9 Malignant neoplasm of bladder, unspecified; D50.9 Iron deficiency anemia, unspecified
CPT/HCPCS: 36415; 71045; 80053; 82550; 82553; 83605; 83735; 83880; 84443; 84484; 85025; 85730; 93005; 99283

== ENCOUNTER 2021-03-02 17:53 | Inpatient (IN) ==
[2021-03-02] MEDS ORDERED: Ondansetron 4 mg VIAL 2 MG/ML 2 ml VIAL IV ONE (19:49)
[2021-03-02] MEDS ORDERED: NS 0.9% 1000 ml BAG 1,000 ML IV ONE ×2 (19:49→21:32)
[2021-03-02 21:15] LABS: Urine Appearance Cloudy; Urine Bilirubin Negative (Negative); Urine Blood 2+ (Negative); Urine Color Yellow; Urine Glucose Negative (Negative); Urine Ketones Negative (Negative); Urine Nitrite Negative (Negative); Urine Protein 2+(100 mg/dL) (Negative); Urine Specific Gravity 1.013 (1.002-1.030); Urine Urobilinogen Negative (Negative)
[2021-03-02 21:23] LABS: Urine Amorphous Crystals Present (Absent); Urine Bacteria 1+ (Absent); Urine Red Blood Cell 3+(>10/hpf) (Absent); Urine Squamous Epithelial Cell Present (Absent); Urine White Blood Cell 3+(>20/hpf) (Absent)
[2021-03-02 21:24] LABS: Albumin 3.8 g/dL (3.2-5.2); Albumin/Globulin Ratio 1.6 (1-3); C Reactive Protein 99.08 mg/L (<8.01); Calcium 8.8 mg/dL (8.6-10.3); EGFR African American 84.6 (>60); EGFR Non-African American 69.9 (>60); Globulin 2.4 g/dL (2-4); Potassium 4.2 mmol/L (3.5-5.0); Total Protein 6.2 g/dL (6.4-8.9)
[2021-03-02 21:26] LABS: Influenza A Molecular Negative (Negative); Influenza B Molecular Negative (Negative)
[2021-03-02 21:30] LABS: Troponin I 0.01 ng/mL (<0.03)
[2021-03-02] MEDS ORDERED: cefTRIAXone 1 gm/50 mL NS BAG 1 GM/50 ML BAG IV ONE (21:30)
[2021-03-02 21:31] LABS: ABS Lymphocytes 0.3 10^3/ul (1.0-4.8); ABS Monocytes 0.6 10^3/ul (0-0.8); ABS Neutrophils 7.6 10^3/ul (1.5-7.7); Anisocytosis 1+; Hematocrit 40 % (42-52); Hemoglobin 13.8 g/dL (14.0-18.0); Lymphocyte % 3.1 %; Mean Corpuscular HGB Conc 34 g/dL (31-36); Mean Corpuscular Hemoglobin 29 pg (27-31); Mean Corpuscular Volume 84 fL (80-94); Mean Platelet Volume 9.2 fL (7.4-10.4); Platelet Count 83 10^3/uL (150-450); Red Blood Count 4.79 10^6 /uL (4.18-5.48); Red Cell Distribution Width 15 % (10-15); White Blood Count 8.5 10^3/uL (3.5-10.8)
[2021-03-02 21:32] LABS: Platelet Morphology Large
[2021-03-02 21:34] LABS: Activated Partial Thrombo Time 29.7 seconds (26.0-38.0); INR 1.36 (0.86-1.15)
[2021-03-03] MEDS ORDERED: Ondansetron ODT 4 mg TAB 4 MG TAB SL PRN (15:39)
[2021-03-03] MEDS: Enoxaparin 40 MG/0.4 ML SYR SUBCUT SCH (16:18)
[2021-03-03] MEDS: cefTRIAXone 1 gm/50 mL NS BAG 1 GM/50 ML BAG IVPB SCH (21:48)
[2021-03-04 06:43] LABS: Albumin 3.4 g/dL (3.2-5.2); Albumin/Globulin Ratio 1.3 (1-3); Calcium 8.7 mg/dL (8.6-10.3); EGFR African American 90.7 (>60); Globulin 2.6 g/dL (2-4); Potassium 3.6 mmol/L (3.5-5.0); Total Bilirubin 0.7 mg/dL (0.2-1.0)
[2021-03-04 07:00] LABS: ABS Lymphocytes 0.3 10^3/ul (1.0-4.8); ABS Monocytes 0.3 10^3/ul (0-0.8); Hematocrit 39 % (42-52); Mean Corpuscular HGB Conc 33 g/dL (31-36); Mean Corpuscular Hemoglobin 29 pg (27-31); Mean Corpuscular Volume 88 fL (80-94); Mean Platelet Volume 8.5 fL (7.4-10.4); Nucleated Red Blood Cells % 0.1; Platelet Count 60 10^3/uL (150-450); Red Blood Count 4.45 10^6 /uL (4.18-5.48); Red Cell Distribution Width 15 % (10-15); White Blood Count 5.6 10^3/uL (3.5-10.8)
[2021-03-04] MEDS ORDERED: Cyanocobalamin INJ 1,000 MCG/ML VIAL 1 ML VIAL IM ONE (13:37)
[2021-03-04] MEDS: Enoxaparin 40 MG/0.4 ML SYR SUBCUT SCH (15:55)
[2021-03-04] MEDS: cefTRIAXone 1 gm/50 mL NS BAG 1 GM/50 ML BAG IVPB SCH (22:43)
[2021-03-05 07:59] LABS: ABS Lymphocytes 0.6 10^3/ul (1.0-4.8); ABS Monocytes 0.5 10^3/ul (0-0.8); ABS Neutrophils 2.6 10^3/ul (1.5-7.7); Eosinophil % 0.6 %; Hematocrit 35 % (42-52); Hemoglobin 12.5 g/dL (14.0-18.0); Lymphocyte % 15.2 %; Mean Corpuscular HGB Conc 36 g/dL (31-36); Mean Corpuscular Hemoglobin 30 pg (27-31); Mean Corpuscular Volume 83 fL (80-94); Nucleated Red Blood Cells % 0.1; Platelet Count 66 10^3/uL (150-450); Red Blood Count 4.19 10^6 /uL (4.18-5.48); Red Cell Distribution Width 14 % (10-15); White Blood Count 3.7 10^3/uL (3.5-10.8)
[2021-03-05 11:19] LABS: Folate 6.98 ng/mL (5.90-24.80)
[2021-03-05] MEDS: Enoxaparin 40 MG/0.4 ML SYR SUBCUT SCH (17:12)
[2021-03-05] MEDS: cefTRIAXone 1 gm/50 mL NS BAG 1 GM/50 ML BAG IVPB SCH (22:15)
[2021-03-06 05:23] LABS: ABS Eosinophils 0.1 10^3/ul (0-0.6); ABS Lymphocytes 0.7 10^3/ul (1.0-4.8); ABS Monocytes 0.5 10^3/ul (0-0.8); ABS Neutrophils 2.6 10^3/ul (1.5-7.7); Eosinophil % 1.6 %; Hematocrit 35 % (42-52); Hemoglobin 12.1 g/dL (14.0-18.0); Lymphocyte % 18.4 %; Mean Corpuscular HGB Conc 35 g/dL (31-36); Mean Corpuscular Hemoglobin 29 pg (27-31); Mean Corpuscular Volume 84 fL (80-94); Mean Platelet Volume 7.6 fL (7.4-10.4); Nucleated Red Blood Cells % 0.1; Platelet Count 85 10^3/uL (150-450); Red Blood Count 4.18 10^6 /uL (4.18-5.48); Red Cell Distribution Width 14 % (10-15)
[2021-03-06 05:44] LABS: Calcium 8.3 mg/dL (8.6-10.3); EGFR African American 100.3 (>60); EGFR Non-African American 82.9 (>60); Potassium 3.2 mmol/L (3.5-5.0)
[2021-03-06 08:35] LABS: Magnesium 1.7 mg/dL (1.9-2.7)
[2021-03-06] MEDS: KCL 20 MEQ/100 ML IVPREMIX 20 MEQ/100 ML BAG IV SCH ×2 (09:57→10:15)
[2021-03-06] MEDS ORDERED: Potassium Chlor 20 meq TAB.ER PO ONE (12:00)
[2021-03-06] MEDS ORDERED: Magnesium Sulfate 2 gm BAG 2 GM/50 ML BAG IVPB ONE (12:01)
[2021-03-06 16:54] VITALS: BP 102/63
[2021-03-07] MEDS ORDERED: Potassium Chlor 20 meq TAB.ER PO SCH (09:00)
== END 2021-03-06 13:00 | disposition home or self-care (01) | DRG 872 ==
LOC: MED 17:53 → ED 17:53 → MED 03-03 04:37
PROVIDERS: ADMIT Internal Medicine; ATTEND Internal Medicine